=== PATIENT | male | born 1955 ===

== ENCOUNTER 2023-05-12 10:55 | Outpatient (NON) | payer OTHER, SELFPAY ==
[2023-05-12 12:10] LABS: Basophils Absolute Auto 0.1 K/mm3 (0.0-0.1); Basophils Percent Auto 0.7 % (0.2-1.2); Eosinophils Absolute Auto 0.1 K/mm3 (0-0.3); Eosinophils Percent Auto 1.3 % (0-4.4); Hemoglobin 7.7 g/dL (14.0-18.0); Immature Granulocyte Absolute 0.09 K/mm3 (0.00-0.031); Immature Granulocyte Percent A 1.2 % (0-0.5); Lymphocytes Absolute Auto 1.43 K/mm3 (0.9-3.2); Lymphocytes Percent Auto 18.8 % (18.3-44.2); Mean Corpuscular HGB Conc 30.8 g/dl (32-36); Mean Corpuscular Hemoglobin 27.1 pg (26-34); Mean Platelet Volume 10.7 fl (7.4-10.4); Monocytes Absolute Auto 0.4 K/mm3 (0.1-0.6); Monocytes Percent Auto 5.3 % (2.6-8.5); Neutrophils Absolute Auto 5.5 K/mm3 (1.3-6.7); Neutrophils Percent Auto 72.7 % (45.5-73.1); Platelet Count Result 215 k/mm3 (150-375); Red Blood Count 2.84 M/mm3 (4.6-6.20); Red Cell Distribution Width 16.3 % (11.5-14.5); White Blood Count 7.6 K/mm3 (4.5-10.0)
[2023-05-12 12:20] LABS: Alanine Aminotransferase 10 U/L (6-50); Albumin Level 3.4 g/dL (3.5-5.1); Alkaline Phosphatase 154 U/L (38-126); Anion Gap 6 mmol/L (8-16); Aspartate Amino Transferase 18 U/L (17-59); Bilirubin,Total 0.4 mg/dL (0.2-1.3); Blood Urea Nitrogen 12 mg/dL (9-20); Calcium 8.9 mg/dL (8.4-10.2); Carbon Dioxide 26 mmol/L (22-30); Chloride 96 mmol/L (98-107); Estimated Glomerular Filt Rate > 60; Glucose 147 mg/dL (65-110); Potassium 4.2 mmol/L (3.4-5.0); Sodium 128 mmol/L (137-145)
[2023-05-12 12:27] LABS: Vancomycin Trough 6.7 ug/mL (10.0-20.0)
== END 2023-05-12 10:56 | disposition home or self-care (01) ==
PROVIDERS: PCP Nurse Practitioner Family
DX: A41.9 Sepsis, unspecified organism (principal)
CPT/HCPCS: 80053; 80202; 85025

== ENCOUNTER 2023-10-26 05:50 | Inpatient (IN) | payer OTHER, SELFPAY ==
[2023-10-26] VITALS (17 sets, daily range): BP systolic 51–186; BP diastolic 42–101; PULSE 82–138; RESP 15–30; TEMP 36.6–37.3; O2SAT 71–100
--- NOTE | ~2023-10-26 | XR_ITS ---
EXAMINATION: XR chest 1V portable DATE: 10/26/2023 06:42 INDICATION: Altered mental status. Lung cancer. TECHNIQUE: A single frontal view of the chest was obtained on 3 radiographs. COMPARISON: None. FINDINGS: There are airspace opacities in all right lung zones with an upper lobe predominance. There is volume loss of right hemithorax. There are airspace opacities in left lower lung zone. No pleural effusion or pneumothorax. The heart size is normal. IMPRESSION: 1. Airspace opacities in right lung and left lower lung zone, likely a combination of pneumonia and r ight-sided lung cancer. Reviewed, dictated and finalized at location E. IMPRESSION: 1. Airspace opacities in right lung and left lower lung zone, likely a combinat ion of pneumonia and right-sided lung cancer.
--- NOTE | ~2023-10-26 | CT_ITS ---
EXAMINATION: CT brain wo con DATE: 10/26/2023 08:43 INDICATION: Altered mental status. TECHNIQUE: Computed tomography (CT) of the head was performed without intravenous contrast. The mA wa s adjusted according to patient size. Iterative reconstruction technique was employed. The dose-lengt h product was 605.33 mGy-cm. 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 There are scattered areas of low attenuation in the cerebral white matter, which is within normal limits for the patient's age. There is no intra cranial hemorrhage, acute infarction, or abnormal intracranial mass lesion. The ventricles are normal in size. There is mucosal thickening in the paranasal sinuses. The mastoid air cells are normal. The orbits are normal. IMPRESSION: 1. 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 Reviewed, dictated and finalized at location E.
--- NOTE | ~2023-10-26 | CT_ITS ---
EXAMINATION: CTA chest PE protocol DATE: 10/26/2023 08:44 INDICATION: Hypoxia. TECHNIQUE: Computed tomography angiography (CTA) of the chest was performed with 100 mL Omnipaque-350 intravenous contrast timed to evaluate the pulmonary arteries. Coronal maximum intensity projection 3D-reconstructions were created by the technologist. Automated exposure control and iterative reconst ruction technique were employed. The dose-length product was 605.33 mGy-cm. COMPARISON: None. FINDINGS: There is mild scarring at left lung apex. There is a thick-walled cavitary mass in right up per lobe. There are patchy airspace opacities in the right lung, worst in right lower lobe. There are airspace opacities in left lower lobe. There are small nodules in left upper lobe. No significant pl eural effusion. The heart size is normal. No pericardial effusion. There is no pulmonary embolus. The re is nodular liver surface contour. There is a small volume of ascites. There are bilateral adrenal masses measuring up to 2.8 cm on the right. There are cysts in right kidney measuring up to 1.8 cm. T here are scattered sclerotic lesions of bone, consistent with metastatic disease. IMPRESSION: 1. No pulmonary embolus. 2. Thick walled cavitary mass in right lung upper lobe, consistent with primary bronchogenic carcinom a. 3. Diffuse lung disease with a lower lobe predominance, consistent with pneumonia. 4. Nodular liver, consistent with cirrhosis versus metastatic disease. 5. Bone lesions, consistent metastatic disease. 6. Adrenal masses, consistent metastatic disease or less likely adenomas. 7. Small volume of ascites. Reviewed, dictated and finalized at location E. IMPRESSION: 1. No pulmonary embolus. 2. Thick walled cavitary mass in right lung upper lobe, consistent with primary bronchogenic carcinoma. 3. Diffuse lung disease with a lower lobe predominance, consistent with pneumon ia. 4. Nodular liver, consistent with cirrhosis versus metastatic disease. 5. Bone lesions, consistent metastatic disease. 6. Adrenal masses, consistent metastatic disease or less likely adenomas. 7. Small volume of ascites.
--- NOTE | 2023-10-26 05:57 | ECG_ITS ---
Test Date: 2023-10-26 06:14:49 Measurements Intervals [place] Rate: 125 P: 85 FL: 162 QRS: 68 QRSD: 86 T: 269 QT: 285 QTc: 411 Interpretive Statements SINUS TACHYCARDIA MODERATE T-WAVE ABNORMALITY, CONSIDER LATERAL ISCHEMIA [-0.1+ mV T-WAVE IN I/aVL/V5/V6] MODERATE T-WAVE ABNORMALITY, CONSIDER INFERIOR ISCHEMIA [-0.1+ mV T-WAVE IN II/aVF] No previous ECG available for comparison Electronically Signed On 10-26-2023 13:46:53 CDT by Larry Owusu M.D.
--- NOTE | 2023-10-26 05:59 | ED.GENADULT ---
HPI - General Adult General Chief complaint: Altered Mental Status <Bonnie Johnston MD - Last Filed: 10/26/23 07:00> Stated complaint: low blood sugar <Bonnie Johnston MD - Last Filed: 10/26/23 07:00> Time Seen by Provider: 10/26/23 05:54 <Bonnie Johnston MD - Last Filed: 10/26/23 07:00> History of Present Illness HPI narrative: Patient with h/o DM, lung ca w/ mets, p/w unresponsiveness,when EMS arrived they saw blood sugar was in the 40s and so started giving him glucose, after which she he woke up although is very confused. Pt unable to provide history <Bonnie Johnston MD - Last Filed: 10/26/23 07:00> Related Data Allergies/adverse reactions: Allergies Allergy/AdvReac Type Severity Reaction Status Date / Time No Known Allergies Allergy Verified 10/26/23 07:00 <Bonnie Johnston MD - Last Filed: 10/26/23 07:00> Review of Systems Review of Systems: ROS unobtainable: Yes unobtainable due to medical condition and unobtainable due to mental status <Bonnie Johnston MD - Last Filed: 10/26/23 07:00> Exam Narrative: EXAMINATION OF ORGAN SYSTEMS/BODY AREAS: Constitutional: Vital signs per nursing GENERAL: Keeps trying to pull at his oxygen mask, his lines HEAD: Normal with no signs of head trauma. EYES: Small pupils ENT: Dry mucous membranes LUNGS: Tachypneic HEART: Tachycardic ABD: [Soft], [nontender to palpation] EXT: Moving all extremities SKIN: Petechiae to extremity NEURO: [Confused, but moves all extremities equally] <Bonnie Johnston MD - Last Filed: 10/26/23 07:00> Course Course Emergency Course: Patient signed out to me pending the rest of his workup. CT brain negative for acute process. His dimer is elevated and CT PE study performed which does not demonstrate a pulmonary embolism but does redemonstrate metastatic lung cancer as well as pneumonia. Patient is status post 2 L boluses of IV fluids as well as Pip/Tazo antibiotics. Patient is evaluated at bedside and his mentation does seem to be improved compared to what was reported to me initially. He does seem to be an appropriate candidate for BiPAP therapy at this time given that he can demonstrate the ability to pull off the mask if needed. Initial ABG was performed while patient was on non-rebreather mask. Approximately 10 minutes after patient is on BiPAP (initially 12/7 but then 14/10 at a rate of 14 with 100% FiO2 and breathing 22-26/min) a 2nd ABG timed 9:32 a.m. is performed. I did discuss patient with Dr Shipley as we are transitioning to BiPAP therapy. Recommends consultation with production mechanic [employer] which is performed after repeat ABG is performed. Patient's repeat lactic acid has been drawn and is pending at this time. Patient's hypoxia is slightly improving, had been 84-88% at bedside while re-evaluating. I discussed with patient's family/son at bedside and he verifies CPR/full code/intubation status. I then discussed with him the possible need for elective intubation given poor SpO2. Patient's son would like to discuss further with his and/or sister. I did discuss with production mechanic tin cans Dr. Jovany Perez who recommends broad coverage antibiotics to include vancomycin, cefepime, and azithromycin verses doxycycline to cover atypicals. These are ordered. Given the patient is a full code at this time, he verifies admission to the ICU with low threshold to intubate. Patient's oxygen saturation is improving with time on the current BiPAP settings of 14/10, saturating 94% with good wave form so will hold at this point and continue Bipap. <Danitza Ray MD - Last Filed: 10/26/23 10:01> Vital Signs Vital signs: Vital Signs Pulse Rate 125 H 10/26/23 05:53 Respiratory Rate 25 H 10/26/23 05:53 Blood Pressure 186/101 H 10/26/23 05:53 Pulse Oximetry 84 L 10/26/23 05:53 Oxygen Delivery Non-Rebreather Mask 10/26/23 05:53 Oxygen Flow Rate 15 10/26/23 05:53 Temperature 99.1 F 10/26/23 06:47 Pulse Rate 120 H
[2023-10-26 06:20] LABS: Alveolar/Arterial O2 Gradient 526.5 mmHg; Base Excess ABG -7.6 mEq/l (+/-2.0); Fractional Inspired Oxygen 90 %; HCO3 ABG 20.5 mEq/l (22.0-26.0); Oxygen Content ABG 13.1 %vol (16.0-22.0); PCO2 ABG 53.2 mmHg (35.0-45.0); PO2 ABG 60.7 mmHg (80.0-100.0); PO2 FiO2 Ratio Arterial Blood 0.67 %; Total Hemoglobin 11.6 g/dL (12.0-18.0)
--- NOTE | 2023-10-26 06:24 | PC.NURSE ---
Pt arrived to ED saturated in stool and urine from mid chest to mid pascual. Pt is A&Ox0 and in respiratory distress. pt is not responding to painful stimuli nor following commands. pt pupils not responsive upon assessment x2 rn Cat, RN to confirm. Pt kept taking off non breather and pulling on IV. Dr. Johnston verbally ordered pt to be placed in bilateral wrist soft restraints. Soft restraints were applied at 0600. Pt O2 dropped in 50s with good pleth. Pt was then sat upright and with nonrebreather still attached. pt was lifted higher into the bed. Pt oxygenation began to increase to 83%. ED respiratory notified and arrived to ED at 0615. Pt appears to have petechaie on bilateral thighs and arms. Pt was placed on high flow therapy on 60L o2. second iv initiated and blood work and ekg's were obtained.
[2023-10-26 06:31] LABS: Glucose Point of Care 323 mg/dl (65-105)
[2023-10-26 06:32] LABS: pH ABG 7.204 (7.350-7.450)
[2023-10-26 06:33] LABS: Oxygen Saturation ABG 85.4 % (95.0-100.0); Oxyhemoglobin 80.1 % THb (90.0-100.0)
[2023-10-26] MEDS: LACTATED RINGERS 1,000 ML 999 ML IV CONT ×2 (06:33→07:20)
[2023-10-26 06:34] LABS: Device NON-REBREATHER MASK; Modified Allen's Test Pass; Site Drawn RIGHT RADIAL
[2023-10-26 06:35] LABS: Hematocrit 36.6 % (42.0-52.0); Hemoglobin 11.2 g/dL (14.0-18.0); Immature Platelet Fraction Pct 7.7 % (0.9-11.2); Mean Corpuscular HGB Conc 30.6 g/dl (32-36); Mean Corpuscular Hemoglobin 28.9 pg (26-34); Mean Corpuscular Volume 94.3 fl (80-100); Mean Platelet Volume 11.2 fl (7.4-10.4); Platelet Count Result 77 k/mm3 (150-375); Red Blood Count 3.88 M/mm3 (4.6-6.20); Red Cell Distribution Width 21.4 % (11.5-14.5); White Blood Count 8.3 K/mm3 (4.5-10.0)
[2023-10-26 06:42] LABS: Lactic Acid Reflex 3.5 mmol/L (0.7-2.0)
[2023-10-26 06:45] LABS: Alanine Aminotransferase 148 U/L (6-50); Albumin Level 2.6 g/dL (3.5-5.1); Anion Gap 10 mmol/L (4-12); Aspartate Amino Transferase 261 U/L (17-59); Bilirubin,Total 3.4 mg/dL (0.2-1.3); Blood Urea Nitrogen 33 mg/dL (9-20); Calcium 7.6 mg/dL (8.4-10.2); Carbon Dioxide 23 mmol/L (22-30); Chloride 107 mmol/L (98-107); Estimated CRCL calculation 107 ml/min; Estimated Glomerular Filt Rate > 60; Glucose 200 mg/dL (65-110); Potassium 4.2 mmol/L (3.4-5.0); Sodium 140 mmol/L (137-145)
[2023-10-26 06:51] LABS: INR 1.4; Partial Thromboplastin Time 30.6 Seconds (22.3-36.8); Prothrombin Time 17.8 Seconds (11.1-14.7)
[2023-10-26 07:15] LABS: Neutrophils Percent Manual 35 % (46-73); Total Cells Counted 100
[2023-10-26] MEDS: Please add drug allergy info to patient profile. 1 EACH XX (07:15)
[2023-10-26] MEDS: PIPERACILLN/TAZ 3.375GM/NS50ML 3.375 GM/50 ML BAG IVPB (07:15)
[2023-10-26 07:16] LABS: Band Neutrophils Percent 16 % (0-6); Lymphocytes Absolute Manual 3.07 K/mm3 (1.1-4.5); Metamyelocytes Percent 1 %; Monocytes Absolute Manual 0.66 K/mm3 (0.1-0.90); Monocytes Percent Manual 8 % (3-9); Myelocytes Percent 1 %; Neutrophils Absolute Manual 4.23 K/mm3 (1.3-6.7); Promyelocytes Percent 2 %
[2023-10-26 07:17] LABS: Platelet Estimate Decreased (Adequate)
[2023-10-26 07:22] LABS: Anisocytosis 2+; Ovalocytes 1+; Poikilocytosis 1+
[2023-10-26 07:23] LABS: Burr Cells 1+; Hypochromasia 1+; Polychromasia 1+; Schistocytes Rare; Smudge Cells FEW; Tear Drop Cells 1+; Toxic Granulation Present
[2023-10-26 07:54] LABS: Alkaline Phosphatase 1566 U/L (38-126)
[2023-10-26 08:00] LABS: D Dimer > 20.00 ug/mL (<0.48)
--- NOTE | 2023-10-26 08:29 | PC.NURSE ---
pt in CT scan at this time. pt placed on 15L via nonrebreather while in CT.
--- NOTE | 2023-10-26 09:17 | PC.NURSE ---
pt being placed on bipap, restraints removed prior to application.
[2023-10-26 09:30] LABS: Reflex Lactic Acid Yes or No Add Lactic
[2023-10-26] MEDS: SODIUM CHLORIDE 0.9% IV 1,000 ML 999 ML IV CONT (09:32)
[2023-10-26 09:33] LABS: Base Excess ABG -5.9 mEq/l (+/-2.0); Fractional Inspired Oxygen 100 %; HCO3 ABG 21.1 mEq/l (22.0-26.0); Oxygen Content ABG 10.9 %vol (16.0-22.0); PCO2 ABG 47.6 mmHg (35.0-45.0); PO2 FiO2 Ratio Arterial Blood 0.44 %; Total Hemoglobin 11.5 g/dL (12.0-18.0)
[2023-10-26 09:34] LABS: Oxygen Saturation ABG 73.5 % (95.0-100.0); PO2 ABG 44.4 mmHg (80.0-100.0); pH ABG 7.264 (7.350-7.450)
[2023-10-26 09:35] LABS: Device NON-INVASIVE VENT; Modified Allen's Test Pass; Non-Invasive Expiratory Pressure 10 CMH2O; Non-Invasive Inspiratory Pressure 14 CMH2O; Non-Invasive Vent Rate 14 /MIN; Oxyhemoglobin 67.4 % THb (90.0-100.0); Site Drawn LEFT RADIAL
[2023-10-26 09:57] LABS: Lactic Acid 3.2 mmol/L (0.7-2.0)
[2023-10-26] MEDS: CEFEPIME 1 GM/NS 50 ML 1 GM/50 ML BAG IVPB (10:34)
[2023-10-26 10:35] LABS: Add Urine Microscopic? YES; Appearance Urine Clear (Clear); Bacteria Urine None Seen /hpf; Bilirubin Urine 2+ (Negative); Blood Urine 2+ (Negative); Color Urine Dark Yellow (Yellow); Glucose Urine UA 3+ mg/dL (Negative); Ketones Urine Negative (Negative); Leukocyte Esterase Ur Negative LEU/UL (Negative); Need Manual Microscopic Reviewed; Nitrate Urine Negative (Negative); Protein Urine 1+ mg/dL (Negative); RBC Urine 21-50 /hpf (0-2); Specific Grav Ur 1.023 (1.001-1.035); Squamous Epithelial Cell Urine Occasional /hpf (Few); WBC Urine 0-5 /hpf (0-3)
[2023-10-26] MEDS: AZITHROMYCIN 500 MG/NS 250 ML 500 MG/250 ML BAG 250 MG IVPB (10:36)
--- NOTE | 2023-10-26 10:41 | PC.NURSE ---
Dr. Ruano at bedside speaking with family about pt being comfort care only. family reports they need to speak with more family first. per Dr. Ruano, holding off on Albumin for now.
[2023-10-26] MEDS: VANCOMYCIN 1,250 MG/NS 250 ML 1,250 MG/250 ML BAG 166.67 MG IVPB (10:56)
--- NOTE | 2023-10-26 11:13 | PCCCNOTE ---
Addendum entered by Tri Gunderson RN 10/26/23 11:51: Call received from Christal with [facility]. She has spoken with Minerva recently. Christal will reach out to clinical team to arrange a visit here today. Original Note: Referral received for hospice. Met with spouse, MAY/POA Minerva, and other family members. Minerva states they have already been in contact with [facility] but had not yet signed up. They did request to speak with [facility] to discuss options. Provider and discharge rn informed. Call placed to [facility] waiting a return call.
[2023-10-26 11:34] LABS: MRSA (PCR) NOT DETECTED (NOT DETECTE)
--- NOTE | 2023-10-26 11:36 | PC.NURSE ---
care coordination at bedside speaking with family.
[2023-10-26] MEDS: NOREPINEPHRINE 8 MG/D5W 250 ML 8 MG/250 ML BAG 9.38 MG IV CONT (12:31)
--- NOTE | 2023-10-26 13:21 | PC.NURSE ---
Family has decided to proceed with comfort care. family requesting for pt to stay on the bipap machine.
--- NOTE | 2023-12-18 11:14 | PM.EVENT ---
Event Note Event Note Event Note: 68-year-old gentleman has a history of metastatic lung cancer, presented the ED with increasing shortness of breath, obtundation/altered mental status, hypoglycemia. I was asked to see the patient by ER physician who stated that the patient is comfort measures and wanted to transfer the patient to the ICU. I went and saw the patient in the ER, discussed with the family at length dated not want any aggressive measures to be done given his poor prognosis and multiple medical issues along with metastatic lung cancer. Family decided to make him comfortable. I discussed with ER physician, ER charge nurse and patient was kept in the ER for comfort measures.
== END 2023-10-26 13:50 | disposition expired | DRG 296 ==
LOC: ANHED 10:51 → ANHICU 13:48
PROVIDERS: Emergency Medicine; Admitting Provider Internal Medicine; Emergency Provider Student in an Organized Health Care Education/Training Program; PCP Nurse Practitioner Family; Visit Provider Internal Medicine
DX: I46.9 Cardiac arrest, cause unspecified (principal); J18.9 Pneumonia, unspecified organism; C34.90 Malignant neoplasm of unspecified part of unspecified bronchus or lung; C79.9 Secondary malignant neoplasm of unspecified site; E11.9 Type 2 diabetes mellitus without complications; I95.9 Hypotension, unspecified; Z66 Do not resuscitate
CPT/HCPCS: 36415; 36600; 70450; 71045; 71275; 80053; 81001; 82805; 82948; 83605; 84443; 85025; 85055; 85380; 85610; 85730; 87040; 87641; 93005; 94002; 96361; 96365; 96366; 96367; 96368; 99284; A9270; J0456; J0692; J2543; J3370; J7030; J7120; Q9967